=== PATIENT | female | born 1995 | race Caucasian/White ===

== ENCOUNTER 2019-03-24 08:12 | Inpatient (IN) | payer BC, OTHER ==
[~2019-03-24] VITALS: Ht 162.6 cm; Wt 95.3 kg
[2019-03-24] MEDS ORDERED: OXYTOCIN/0.9 % SODIUM CHLORIDE 1,000 ML IV SCH ×2 (09:10→15:21)
[2019-03-24] MEDS ORDERED: LR 1,000 ML IV SCH (09:10)
[2019-03-24 09:14] VITALS: BP_SYST 130
[2019-03-24] MEDS ORDERED: TERBUTALINE SULFATE 1 MG/ML VIAL SUBCUT ONE (09:15)
[2019-03-24] MEDS ORDERED: NALBUPHINE HCL 10 MG/ML AMP IVP PRN (09:15)
[2019-03-24] MEDS ORDERED: OXYTOCIN/0.9 % SODIUM CHLORIDE 1,000 ML IV ONE ×2 (10:08→15:21)
[2019-03-24] MEDS ORDERED: DERMOPLAST SPRAY TP PRN (15:30)
[2019-03-24] MEDS ORDERED: METHYLERGONOVINE MALEATE 0.2 MG TABLET PO PRN (15:30)
[2019-03-24] MEDS ORDERED: DOCUSATE SODIUM 100 MG CAPSULE PO PRN (15:30)
[2019-03-24] MEDS ORDERED: OXYCODONE/ACETAMINOPHEN 5-325 TABLET PO PRN ×2 (15:30)
[2019-03-24] MEDS ORDERED: WITCH HAZEL LEAF 1 MED.PAD MED.PAD TP PRN (15:30)
[2019-03-24] MEDS ORDERED: LANOLIN 7 GM OINT. TP PRN (15:30)
[2019-03-24] MEDS ORDERED: HYDROCORTISONE 0.5%, 28.35 GM TOPICAL CREAM TP PRN (15:30)
[2019-03-24] MEDS ORDERED: ANUSOL 1 EA SUPP.RECT (PREPARATION H) RC PRN (15:30)
[2019-03-24] MEDS ORDERED: TEMAZEPAM 15 MG CAPSULE PO PRN (21:00)
[2019-03-24] MEDS: IBUPROFEN 600 MG TABLET PO SCH (23:59)
[2019-03-25] MEDS: IBUPROFEN 600 MG TABLET PO SCH ×2 (06:00→12:10)
[2019-03-25 07:20] LABS: HEMATOCRIT 25.6 % (36-48); HEMOGLOBIN 8.2 g/dL (12.0-16.0)
== END 2019-03-25 17:36 | disposition home or self-care (01) | DRG 807 ==
LOC: SPU 08:12
PROVIDERS: ADMIT Specialist; ATTEND Specialist
PROC: 10E0XZZ Delivery of Products of Conception, External Approach (ICD-10-PCS; principal; 2019-03-24)
DX: O69.81X0 Labor and delivery complicated by cord around neck, without compression, not applicable or unspecified (principal); Z37.0 Single live birth; Z3A.39 39 weeks gestation of pregnancy
CPT/HCPCS: 36415; 85018-TC; 86592; 86886; 86900; 86901; J2590; J7120